=== PATIENT | male | born 1940 | race African-American/Black ===

== ENCOUNTER 2022-02-13 17:18 | Emergency (ER) | payer BC ==
[~2022-02-13] VITALS: Ht 177.8 cm; Wt 68.5 kg
--- NOTE | 2022-02-13 20:22 | NUR ---
Patient discharged to home in stable condition. Written and verbal after care instructions given. Patient verbalizes understanding of instructions. Stressed follow up or return to ER for worsening s/s. pt was taken to car via wheelchair. AOx3.
[2022-02-13 20:24] VITALS: BP 148/86
== END 2022-02-13 20:24 | disposition home or self-care (01) ==
LOC: ER 17:38
DX: S09.90XA Unspecified injury of head, initial encounter (principal); S00.03XA Contusion of scalp, initial encounter; V29.88XA Motorcycle rider (driver) (passenger) injured in other specified transport accidents, initial encounter; Y92.410 Unspecified street and highway as the place of occurrence of the external cause; I69.354 Hemiplegia and hemiparesis following cerebral infarction affecting left non-dominant side; E78.5 Hyperlipidemia, unspecified; E11.9 Type 2 diabetes mellitus without complications; I10 Essential (primary) hypertension
CPT/HCPCS: 70450; 72125; A4663

== ENCOUNTER 2022-03-10 11:33 | Emergency (ER) | payer BC ==
[~2022-03-10] VITALS: Ht 182.9 cm; Wt 76.2 kg
[2022-03-10] MEDS ORDERED: KETOROLAC TROMETHAMINE 15 MG INJ IM ONE (12:00)
[2022-03-10] MEDS ORDERED: KETOROLAC TROMETHAMINE 15 MG INJ ONE (12:03)
[2022-03-10] MEDS ORDERED: IBUPROFEN 400 MG TABLET ONE (12:12)
[2022-03-10] MEDS ORDERED: IBUPROFEN 400 MG TABLET PO STA (12:15)
--- NOTE | 2022-03-10 13:17 | NUR ---
Gave pt d/c instructions, pt verbalized understanding.
== END 2022-03-10 13:20 | disposition home or self-care (01) ==
LOC: ER 11:33
DX: M25.511 Pain in right shoulder (principal); M19.011 Primary osteoarthritis, right shoulder; I69.354 Hemiplegia and hemiparesis following cerebral infarction affecting left non-dominant side; E11.9 Type 2 diabetes mellitus without complications; Z99.3 Dependence on wheelchair; N40.0 Benign prostatic hyperplasia without lower urinary tract symptoms; E78.00 Pure hypercholesterolemia, unspecified
CPT/HCPCS: 73030; A4663; J1885